=== PATIENT | female | born 1985 | race Caucasian/White ===

== ENCOUNTER 2016-03-30 17:38 | Emergency (ER) | payer OTHER ==
[~2016-03-30] VITALS: Ht 160 cm; Wt 72.8 kg
[~2016-03-30 17:38] MED LIST: CIPRO500 MG PO; CLONAZEPAM0.5 MG PO; DEPO-PROVE150 MG/11 IM; DYNAPEN 250 MG250 MG PO; FLAGYL500 MG PO; GABAPENTIN300 MG PO; IMITREX25 MG PO; IRON325 M1 PO; KEFLEX500 MG PO; KLONOPIN0.5 M1 PO; LEXAPRO10 MG PO; MIRALAX17 GM PO; MIRENA52 MG IY; MOTRIN800 MG PO; NAPROXEN500 MG PO; NORCO 5/3251 TABLET PO; OXYCODONE HCL10 MG PO; PAXIL20 MG PO; PEPCID20 MG PO; PYRIDIUM100 MG PO; REGLAN10 MG PO; ROXICET,PERCOCET5 ML PO; ULTRAM50 MG PO; VENLAFAXINE HC150 M1 PO; ZANAFLEX4 MG PO; ZOFRAN ODT4 MG PO; ZOFRAN4 MG PO; ZOLOFT100 MG PO
[2016-03-30] MEDS ORDERED: FLEXERIL10 MG PO (22:10)
[2016-03-30 22:31] VITALS: BP 100/65
== END 2016-03-30 22:37 | disposition home or self-care (01) ==
LOC: EME 17:38 → EXP 17:38
DX: S09.90XA Unspecified injury of head, initial encounter (principal); S13.4XXA Sprain of ligaments of cervical spine, initial encounter; S39.012A Strain of muscle, fascia and tendon of lower back, initial encounter; S46.912A Strain of unspecified muscle, fascia and tendon at shoulder and upper arm level, left arm, initial encounter; W10.8XXA Fall (on) (from) other stairs and steps, initial encounter
CPT/HCPCS: 70450; 72100; 72125; 73030; 99281; 99284